=== PATIENT | female | born 1945 | race Two or more races ===

== ENCOUNTER 2019-03-15 09:19 | Outpatient (CLI) | payer MEDICARE, MEDICAID ==
[~2019-03-15] VITALS: Ht 154.9 cm; Wt 72.6 kg
[2019-03-15 10:09] VITALS: BP 132/62
[2019-03-15] MEDS ORDERED: SYNTHROID88 MCG ORAL (10:27)
--- NOTE | 2019-03-15 18:30 | Consultation ---
DATE OF CONSULTATION: 03/15/2019 CONSULTING PHYSICIAN: Vladimir Regalado M.D. CHIEF COMPLAINT: Abdominal pain. HISTORY OF PRESENT ILLNESS: This is a 73-year-old female with a few medical problems which I will dictate in a second, who presents to our office for complaint of epigastric abdominal pain. Apparently, she was diagnosed with gastritis many years ago. She is not taking any medications except for ranitidine. She never had a colonoscopy. Denies any change in bowel habits. No significant weight loss. No bright red blood per rectum. No diarrhea. No constipation. PAST MEDICAL HISTORY: 1. Hypothyroidism. 2. Gastritis. 3. Gallstones. 4. Renal insufficiency. PAST SURGICAL HISTORY: 1. Bilateral oophorectomy. 2. Cholecystectomy. MEDICATIONS: Levothyroxine and ranitidine. FAMILY HISTORY: Noncontributory. SOCIAL HISTORY: The patient denies any tobacco, alcohol, or IV drug abuse. ALLERGIES: No known drug allergy. REVIEW OF SYSTEMS: A 10-point review of systems was performed and pertinent positives in HPI. PHYSICAL EXAMINATION: VITAL SIGNS: Temperature 97.2, blood pressure is 132/62, pulse 69, respirations 20. HEENT: Normocephalic and atraumatic. Sclerae anicteric. NECK: Supple. No evidence of lymphadenopathy. CARDIOVASCULAR: Regular rate and rhythm. Plus S1 and S2. No obvious murmur. LUNGS: Clear to auscultation bilaterally. ABDOMEN: Positive bowel sounds. Soft. Minimal tenderness to palpation in the epigastric area. No rebound. No guarding. No peritoneal sign. EXTREMITIES: No cyanosis. No clubbing. No edema. ASSESSMENT AND PLAN: This is a 73-year-old female with chronic GERD, gastritis, on ranitidine, and never had a colonoscopy. Plan to do an endoscopy and a screening colonoscopy. The patient was scheduled for March 28. The patient was given instruction for colonoscopy and the prep, and was informed of the risks and benefits and she agreed to it. We will schedule for March 28. I want to thank Dr. Campos for this kind referral. Vladimir Regalado M.D. DR: GINO JOB#: [id number] CC: Dr. Campos
== END 2019-03-15 12:19 | disposition home or self-care (01) ==
LOC: PAN 09:19
DX: K21.9 Gastro-esophageal reflux disease without esophagitis (principal); K29.50 Unspecified chronic gastritis without bleeding; Z90.49 Acquired absence of other specified parts of digestive tract; Z90.722 Acquired absence of ovaries, bilateral; Z79.899 Other long term (current) drug therapy; E03.9 Hypothyroidism, unspecified
CPT/HCPCS: 99202

== ENCOUNTER 2019-04-26 10:15 | Outpatient (CLI) | payer MEDICARE, MEDICAID ==
[2019-04-25 10:38] VITALS: BP 106/75
[~2019-04-26 10:15] MED LIST: SYNTHROID88 MCG ORAL
--- NOTE | 2019-04-26 15:14 | General Progress Note ---
Assessment/Plan Problem List: (1) Gastritis ICD Codes: K29.70 - Gastritis, unspecified, without bleeding SNOMED: 3568668 (2) Colon polyps ICD Codes: K63.5 - Polyp of colon SNOMED: 58893573 Assessment/Plan: repeat colonoscopy in 3 years Subjective ROS Limited/Unobtainable: Yes Allergies: Coded Allergies: No Known Allergies (Unverified , 03/25/19) Objective General Appearance: alert EENT: normal ENT inspection Neck: supple Cardiovascular: normal rate Respiratory/Chest: decreased breath sounds Abdomen: normal bowel sounds, non tender, soft Extremities: non-tender Vladimir Regalado MD Apr 26, 2019 15:14
== END 2019-04-26 12:15 | disposition home or self-care (01) ==
LOC: PAN 10:15
DX: K29.70 Gastritis, unspecified, without bleeding (principal); K63.5 Polyp of colon
CPT/HCPCS: 99212